=== PATIENT | female | born 1970 | race Caucasian/White ===

== ENCOUNTER 2018-08-18 14:22 | Outpatient (CLI) | payer MEDICAID ==
[~2018-08-18] VITALS: Ht 160 cm; Wt 66.7 kg
[2018-08-18 14:52] VITALS: BP 107/67
[2018-08-18] MEDS ORDERED: DEXILANT60 MG ORAL (15:51)
[2018-08-18] MEDS ORDERED: ASPIRIN EC81 MG ORAL (15:51)
[2018-08-18] MEDS ORDERED: CRESTOR20 MG ORAL (15:51)
[2018-08-18] MEDS ORDERED: FISH OIL CAP1000 MG ORAL (15:51)
[2018-08-18] MEDS ORDERED: VITAMIN D1000 UNI1 ORAL (15:51)
[2018-08-18] MEDS ORDERED: VERAPAMIL ER120 M1 PO (15:51)
== END 2018-08-18 14:52 | disposition home or self-care (01) ==
LOC: PAN 14:22
DX: R10.9 Unspecified abdominal pain (principal)
CPT/HCPCS: 99202

== ENCOUNTER 2019-01-20 07:58 | Day surgery (SDC) | payer MEDICAID ==
[~2019-01-20] VITALS: Ht 157.5 cm; Wt 64.4 kg
[2019-01-20] VITALS (8 sets, daily range): BP systolic 117–128; BP diastolic 63–84
[~2019-01-20 07:58] MED LIST: ASPIRIN EC81 MG ORAL; CRESTOR20 MG ORAL; DEXILANT60 MG ORAL; FISH OIL CAP1000 MG ORAL; VERAPAMIL ER120 M1 PO; VITAMIN D1000 UNI1 ORAL
[2019-01-20] MEDS ORDERED: LIPITOR40 MG ORAL (08:55)
--- NOTE | 2019-01-20 09:15 | Pre-Procedure Note/Attestation ---
Pre-Procedure Note/Attestation Complete Prior to Procedure Planned Procedure: not applicable Procedure Narrative: esophagogastroduodenoscopy and colonoscopy Indications for Procedure Pre-Operative Diagnosis: GERD, abd pain, rectal bleed Attestation I attest that I discussed the nature of the procedure; its benefits; risks and complications; and alternatives (and the risks and benefits of such alternatives ), prior to the procedure, with the patient (or the patient's legal pest control service representative). I attest that, if there was a reasonable possibility of needing a blood transfusion, the patient (or the patient's legal pest control service representative) was given the [facility] standardized written summary, pursuant to the Alber Delphine Blood Safety Act ([place] Health and Safety Code # 1645, as amended). I attest that I re-evaluated the patient just prior to the surgery and that there has been no change in the patient's H&P, except as documented below: Albert Dunlap MD Jan 20, 2019 09:15
--- NOTE | 2019-01-20 09:16 | Short Stay Surgery H&P ---
History of Present Illness History of Present Illness Chief Complaint GERD, abd pain, rectal bleed HPI Maranda Vela is a 48 year old female who was admitted on for Abdominal Pain, Gastric Ulcer,Nausea Patient History Allergies: Coded Allergies: No Known Allergies (Unverified , 08/18/18) PAST MEDICAL HISTORY: (1) HTN (hypertension) (2) Hypercholesteremia Medication History Scheduled Aspirin Ec* (Aspirin Ec*), 81 MG ORAL DAILY, (Reported) Atorvastatin Calcium* (Lipitor*), 40 MG ORAL BEDTIME, (Reported) Cholecalciferol (Vitamin D3)* (Vitamin D*), Unknown Dose ORAL DAILY, (Reported) Dexlansoprazole (Dexilant), 60 MG ORAL DAILY, (Reported) Fish Oil (Fish Oil 1,000 mg Capsule), 1,000 MG ORAL DAILY, (Reported) Verapamil Hcl (Verapamil Er), 120 MG PO DAILY, (Reported) Discontinued Medications Rosuvastatin Calcium* (Crestor*), 20 MG ORAL DAILY, (Reported) Discontinued Reason: discontinued med Review of Systems Cardiovascular: Reports: no symptoms Respiratory: Reports: no symptoms Skeletal: Reports: no symptoms Gastrointestinal: Reports: no symptoms Genitourinary: Reports: no symptoms Neurologic: Reports: no symptoms Endocrine: Reports: no symptoms Hematologic: Reports: no symptoms Physical Exam Vital Signs Last Vital Signs Date Time Temp Pulse Resp B/P (MAP) Pulse Ox O2 Delivery O2 Flow Rate FiO2 01/20/19 08:58 Room Air 01/20/19 08:52 97.4 59 18 117/65 100 Labs Laboratory Tests Test 01/20/19 08:10 Urine HCG, Qualitative Negative (NEGATIVE) Skin: normal HENT: normal Heart: normal Lungs: normal Abdomen: normal Extremities: normal Plan Plan of Care esophagogastroduodenoscopy and colonoscopy Attestation Are the patient's medical conditions optimized for surgery? Attestation Response: yes Albert Dunlap MD Jan 20, 2019 09:16
--- NOTE | 2019-01-20 10:12 | Anethesia Preoperative Eval ---
Anesthesia Pre-op PMH/ROS General Date of Evaluation: Jan 20, 2019 Time of Evaluation: 09:45 Anesthesiologist: musa ASA Score: ASA 2 Mallampati Score Class I : Soft palate, uvula, fauces, pillars visible Class II: Soft palate, uvula, fauces visible Class III: Soft palate, base of uvula visible Class IV: Only hard plate visible Mallampati Classification: Class II Surgeon: kevyn Diagnosis: anemia Surgical Procedure: egd colonoscopy Anesthesia History: none Family History: no anesthesia problems Allergies: Coded Allergies: No Known Allergies (Unverified , 08/18/18) Medications: see eMAR Patient NPO?: Yes NPO Date: Jan 20, 2019 NPO Time: 00:01 Past Medical History Cardiovascular: Reports: HTN; Denies: CAD, AK, valve dz, arrhythmia, other Pulmonary: Denies: asthma, COPD, ELIAS, other Gastrointestinal/Genitourinary: Denies: GERD, CRI, ESRD, other Neurologic/Psychiatric: Denies: dementia, CVA, depression/anxiety, TIA, other Endocrine: Denies: DM, hypothyroidism, steroids, other HEENT: Denies: cataract (L), cataract (R), glaucoma, BARROW (L), BARROW (R), other Hematology/Immune: Reports: anemia; Denies: DVT, bleeding disorder, other Musculoskeletal/Integumentary: Denies: OA, RA, DJD, DDD, edema, other PSxH Narrative: see chart Anesthesia Pre-op Phys. Exam Physician Exam Last Vital Signs Date Time Temp Pulse Resp B/P (MAP) Pulse Ox O2 Delivery O2 Flow Rate FiO2 01/20/19 08:58 Room Air 01/20/19 08:52 97.4 59 18 117/65 100 Constitutional: NAD Neurologic: CN 2-12 intact Cardiovascular: RRR Gastrointestinal: S/NT/ND Airway Exam Mallampati Classification 2 Mallampati Score: Class II ROM: full Dentures: no upper, no lower Anesthesia Pre-op A/P Labs Urine Test Test 01/20/19 08:10 Urine HCG, Qualitative Negative (NEGATIVE) Studies Pre-op Studies: EKG - sr Risk Assessment & Plan Assessment: denies cp/sob Plan: mac Pre-Antibiotics Drug: none Abby Pablo [employer]ANG[employer]SEMBLER Jan 20, 2019 10:12
--- NOTE | 2019-01-20 10:22 | Endoscopy Procedure Note ---
Endoscopy Procedure Note General Indication for Procedure: gerd, abd pain, rectal bleed Procedures Performed: EGD, colonoscopy Operative Findings/Diagnosis: gastritis, hemorrhoids Specimen: yes Pt Tolerated Procedure Well: Yes Estimated Blood Loss: none Anesthesia Anesthesiologist: carlos enrique Anesthesia: MAC Inserted Devices Implant(s) used?: No Quality Quality of Bowel Preparation: Good Did scope reach the cecum?: Yes Was there any complications?: No GI Core Measures 50 yrs or older w/o bx or poly: No 10yrs. F/U recommended: Yes If not recommended, why?: Above average risk 18 years or older w/prev. colo: No Albert Dunlap MD Jan 20, 2019 10:22
--- NOTE | 2019-01-20 10:23 | Immediate Post-Op Evaluation ---
Immediate Post-Op Evalulation Immediate Post-Op Evalulation Procedure: EGD/Colonoscopy Date of Evaluation: Jan 20, 2019 Time of Evaluation: 10:23 IV Fluids: 6000 Blood Pressure Systolic: 128 Blood Pressure Diastolic: 65 Pulse Rate: 62 Respiratory Rate: 14 O2 Sat by Pulse Oximetry: 100 Temperature (Fahrenheit): 97.2 Pain Score (1-10): 0 Nausea: No Vomiting: No Complications none Patient Status: awake, reacts, patent Hydration Status: adequate Drug: none Abby Pablo CRNA Jan 20, 2019 10:23
--- NOTE | 2019-01-20 11:22 | 48 Hour Post Anesthesia Eval ---
Post Anesthesia Evaluation Procedure: EGD/Colonoscopy Date of Evaluation: Jan 20, 2019 Time of Evaluation: 11:21 Blood Pressure Systolic: 127 0: 50 Pulse Rate: 70 Respiratory Rate: 14 Temperature (Fahrenheit): 97.0 O2 Sat by Pulse Oximetry: 98 Airway: patent Nausea: No Vomiting: No Hydration Status: adequate Cardiopulmonary Status: stable Mental Status/LOC: patient returned to baseline Post-Anesthesia Complications: none Follow-up care needed: N/A Abby Pablo CRNA Jan 20, 2019 11:22
--- NOTE | 2019-01-20 16:45 | Procedure Note ---
DATE OF PROCEDURE: 01/20/2019 SURGEON: Albert Dunlap M.D. PROCEDURE: Upper endoscopy with biopsy and colonoscopy. ANESTHESIA: Per MENDOZA Pablo. INSTRUMENT: Olympus adult flexible upper endoscope and colonoscope. INDICATION: 1. Chronic GERD. 2. Abdominal pain. 3. Rectal bleeding. REASON FOR PROCEDURE: The procedure, risks, benefits, and possible consequences, including hemorrhage, aspiration, perforation and infection, and alternative treatments, were explained to the patient/legal guardian by Dr. Albert Dunlap and the patient/legal guardian understood and accepted these risks. PROCEDURE IN DETAIL: After informed consent was obtained and the patient was adequately sedated, Olympus upper endoscope was advanced from mouth into the second portion of the duodenum and retroflexion was performed in the stomach. The patient had minimum distal esophagitis. In the stomach, there was diffuse gastritis. Random biopsy from antrum was obtained to rule out H. pylori infection. At this time, the upper endoscope was retrieved. The patient was turned over for colonoscopy. First, rectal exam was performed which showed positive for internal hemorrhoids. Then, the scope was advanced from rectum into the cecum documented by appendiceal orifice, ileocecal valve, and right upper quadrant palpation. Quality of prep was very good. The patient has normal colonoscopy examination without any obvious finding. Retroflexion of rectum showed evidence of small nonbleeding internal hemorrhoids. SUMMARY OF FINDINGS: 1. Minimal distal esophagitis. 2. Gastritis, status post biopsy. 3. Small internal hemorrhoids. RECOMMENDATIONS: 1. Follow up biopsy results and treat accordingly. 2. Considering PPI daily given the evidence of minimal esophagitis. 3. The patient to follow in the office for the procedure and possible treatment for esophagitis. Albert Dunlap M.D. DR: Paradise JOB#: [id number] CC:
== END 2019-01-20 13:50 | disposition home or self-care (01) ==
LOC: GAS 07:58
DX: K21.9 Gastro-esophageal reflux disease without esophagitis (principal); R10.9 Unspecified abdominal pain; K62.5 Hemorrhage of anus and rectum; K20.9 Esophagitis, unspecified; K64.8 Other hemorrhoids; I10 Essential (primary) hypertension; E78.00 Pure hypercholesterolemia, unspecified; Z79.82 Long term (current) use of aspirin; Z79.899 Other long term (current) drug therapy; K29.50 Unspecified chronic gastritis without bleeding
CPT/HCPCS: 43239; 45378; 81025; Z7512; 94003; 94150